=== PATIENT | female | born 1980 | race Caucasian/White ===

== ENCOUNTER 2018-04-17 07:12 | Outpatient (CLI) | payer OTHER ==
[~2018-04-17 07:12] MED LIST: KETO10TA2 PO; ORPH100T PO; TESSALON PERLE100 MG PO; ZITHROMAX500 MG PO; ZYRTEC10 MG PO
== END 2018-04-17 07:20 | disposition home or self-care, planned readmission (81) ==
LOC: MAMO-SONO 07:12
DX: N60.11 Diffuse cystic mastopathy of right breast (principal); N60.12 Diffuse cystic mastopathy of left breast; Z12.31 Encounter for screening mammogram for malignant neoplasm of breast

== ENCOUNTER 2018-12-21 10:03 | Outpatient (CLI) | payer OTHER | END 2018-12-21 16:47 | disposition home or self-care (01) | LOC: RAD 10:03 | DX: M54.5 Low back pain (principal) ==

== ENCOUNTER → 2019-04-04 17:20 | Outpatient (CLI) | payer OTHER | END | disposition home or self-care (01) | LOC: RAD 17:20 | DX: M54.2 Cervicalgia (principal); M54.6 Pain in thoracic spine; M54.5 Low back pain ==